=== PATIENT | male | born 1955 | race Caucasian/White ===

== ENCOUNTER 2018-07-08 09:15 | Day surgery (SDC) | payer MEDICARE, OTHER ==
[~2018-07-08] VITALS: Ht 188 cm; Wt 115.7 kg
[~2018-07-08 09:15] MED LIST: ASCO10006 PO; ASPI-586 PO; ATOR20TA66 PO
[2018-07-08 09:20] VITALS: BP 140/85
[2018-07-08] MEDS ORDERED: NS IV 500 ML 500 ML IV PRN (09:23)
[2018-07-08] MEDS ORDERED: NS IV 500 ML 500 ML ONE (09:27)
[2018-07-08] MEDS ORDERED: LIDOCAINE JELLY 2% 6 ML SYRINGE MM PRN (09:30)
[2018-07-08] MEDS ORDERED: MIDAZOLAM 2 MG/2 ML (VERSED) VIAL IVP ONE (09:30)
[2018-07-08] MEDS ORDERED: fentaNYL INJECTION 100 MCG/2 ML AMP IVP ONE (09:30)
--- NOTE | 2018-07-08 10:28 | Conscious Sedation/ASA ---
Conscious Sedation Pre-Proced Time 10:20 ASA Score 2 For ASA 3 and 4: Consider anesthesia and medical clearance. Also, for patients with a history of failed moderate sedation consider anesthesia. Airway Lungs Heart ASA score ASA 1: a normal healthy patient ASA 2: a patient with a mild systemic disease (mid diabetes, controlled hypertension, obesity ASA 3: a patient with a severe systemic disease that limits activity (angina , COPD, prior Myocardial infarction) ASA 4: a patient with an incapacitating disease that is a constant threat to life (CHF, renal failure) ASA 5: a moribund patient not expected to survive 24 hrs. (ruptured aneurysm) ASA 6: a declared brain patient whose organs are being harvested. For emergent operations, add the letter E after the classification Mallampati Classification Grade 2 Sedation Plan Analgesia, Amnesia, Plan communicated to team members, Discussed options with patient/fam, Discussed risks with patient/fam The patient is an appropriate candidate to undergo the planned procedure, sedation, and anesthesia. The patient immediately re-assessed prior to indication. JIE PASCUAL MD Jul 08, 2018 10:28
--- NOTE | 2018-07-08 10:29 | Progress Note-Pre Operative ---
Pre-Operative Progress Note H&P Reviewed The H&P was reviewed, patient examined and no changes noted. Date Seen by Provider: Jul 08, 2018 Time Seen by Provider: 10:20 Date H&P Reviewed: Jul 08, 2018 Time H&P Reviewed: 10:20 Pre-Operative Diagnosis: screening colonoscopy JIE PASCUAL MD Jul 08, 2018 10:29
[2018-07-08] MEDS ORDERED: ACETAMINOPHEN 325 MG TABLET PO PRN (10:30)
[2018-07-08] MEDS ORDERED: HYDROcodone/APAP 5 MG/325 MG (LORTAB) TAB PO PRN (10:30)
[2018-07-08] MEDS ORDERED: ONDANSETRON 4 MG/2 ML (SDV) Z0FRAN IV PRN (10:30)
[2018-07-08] MEDS ORDERED: morphine INJ 10 MG/ML 1ML (SYR OR VIAL) IV PRN (10:30)
--- NOTE | 2018-07-08 11:12 | Discharge Inst-Surgical ---
D/C Lap Instructions-ANKUR Follow Up Activity as tolerated Regular Diet Symptoms to Report: Fever over 101 degree F, Nausea/Vomiting Infection Signs and Symptoms to report: Increased redness, Foul odor of wound, Increased drainage Bathing instructions: May shower Operative Area Clean/Dry; Keep incision clean/dry If any problems/questions: Contact your physician or go to Emergency Room JIE PASCUAL MD Jul 08, 2018 11:12
[2018-07-08] MEDS ORDERED: fentaNYL INJECTION 100 MCG/2 ML AMP ONE ×2 (11:19)
[2018-07-08] MEDS ORDERED: MIDAZOLAM 2 MG/2 ML (VERSED) VIAL ONE ×4 (11:19→11:20)
[2018-07-08] MEDS ORDERED: LIDOCAINE JELLY 2% 6 ML SYRINGE ONE (11:19)
--- NOTE | 2018-07-08 11:59 | Progress Note-Post Operative ---
Post-Operative Progess Note Surgeon (s)/Mineral Mixer (s) Surgeon JIE PASCUAL MD Mineral Mixer: none Pre-Operative Diagnosis screening colonoscopy Post-Operative Diagnosis mild sigmid diverticulosis. Procedure & Operative Findings Date of Procedure 07/08/18 Procedure Performed/Findings Colonoscopy Anesthesia Type CS Estimated Blood Loss Estimated blood loss (mL): minimal Specimens/Packing Specimens Removed none JIE PASCUAL MD Jul 08, 2018 11:59
[2018-07-08 12:25] VITALS: BP 110/75
--- OUTSIDE RECORDS SUMMARY | 2018-07-08 12:25 | XMS REPORT | Continuity of Care Document ---
Author Author [facility] Organization [facility] Address Unknown Phone Unavailable Allergies There is no data. Medications There is no data. Problems There is no data. Procedures There is no data. Results There is no data. Encounters ACCT No. Visit Date/Time Discharge Status Pt. Type Provider Facility Loc./Unit Complaint [id number] 04/15/2013 12:00:00 04/15/2013 23:59:59 CLS Outpatient [id number] 04/12/2013 13:30:00 04/12/2013 23:59:59 CLS Outpatient [id number] 04/08/2013 15:10:00 04/08/2013 23:59:59 CLS Outpatient [id number] 03/02/2013 12:47:00 03/02/2013 23:59:59 CLS Outpatient [id number] 07/08/2018 10:15:00 PEN Preadmit JIE PASCUAL MD [facility] ENDO SCREENING
[2018-07-08 13:00] VITALS: BP 123/84
[2018-07-08 13:30] VITALS: BP 123/84
--- NOTE | 2018-07-08 14:09 | OPERATIVE REPORT ---
DATE OF SERVICE: 07/08/2018 ATTENDING PRIMARY CARE PHYSICIAN: Dr. Galeano PREOPERATIVE DIAGNOSIS: Screening colonoscopy. POSTOPERATIVE DIAGNOSIS: Mild sigmoid diverticulosis. PROCEDURE: Colonoscopy. SURGEON: Jie Pascual MD ANESTHESIA: Conscious sedation. ESTIMATED BLOOD LOSS: Minimal. FINDINGS: No significant hemorrhoids identified. Prostate gland was palpable and appeared normal. Mild sigmoid diverticulosis, no polyps or any neoplasms identified. DISPOSITION: The patient tolerated the procedure well. INDICATIONS: The patient is a 63-year-old male in need of a screening colonoscopy. He has not had a colonoscopy up to this point in his life. He states for the most part he is doing well, does not report any major issues with diarrhea nor constipation as well as no red blood per rectum nor any dark tarry stools. He also does not report any family history of colon cancer. DESCRIPTION OF PROCEDURE: The patient was brought to the endoscopy suite, laid in left lateral decubitus position. After adequate IV pain and sedative medications and conscious sedation anesthesia, a digital rectal examination was performed. No significant hemorrhoids identified. Normal sphincter tone was felt and there were no palpable masses. Prostate gland was palpable and appeared normal. The endoscope was then intubated to the anus and rectum gently insufflated. The endoscope was then advanced through the valves of Zarate of the rectum with no polyps or any neoplasms identified. We then proceeded through the sigmoid colon where mild sigmoid diverticulosis identified. The endoscope was then advanced through the descending, transverse and ascending colon to the cecum. These segments were normal. There were no polyps or any neoplasms identified throughout the colon or rectum. Endoscope was then slowly withdrawn with taking a second look and suctioning residual air with no additional findings. The patient tolerated the procedure well. We will recommend continued medical management with a high fiber diet with at least 30 grams of fiber per day as well as at least 64 fluid ounces of water daily to promote soft stools on a daily basis. He does not need another colonoscopy for another 10 years; however, sooner if any problems arise. Job ID: [id number] DocumentID: [id number] Dictated Date: 07/08/2018 11:56:22 Paperhanger And Painter Date: 07/08/2018 14:08:48 Dictated By: JIE PASCUAL MD
== END 2018-07-08 13:30 | disposition home or self-care (01) ==
LOC: ENDO 09:15
PROVIDERS: ATTEND Surgery
DX: Z12.11 Encounter for screening for malignant neoplasm of colon (principal); K57.30 Diverticulosis of large intestine without perforation or abscess without bleeding; E78.00 Pure hypercholesterolemia, unspecified; M17.0 Bilateral primary osteoarthritis of knee; M16.0 Bilateral primary osteoarthritis of hip; M47.9 Spondylosis, unspecified; Z86.718 Personal history of other venous thrombosis and embolism; Z96.652 Presence of left artificial knee joint; Z96.641 Presence of right artificial hip joint; Z87.891 Personal history of nicotine dependence; Z79.82 Long term (current) use of aspirin; Z79.899 Other long term (current) drug therapy